=== PATIENT | female | born 1945 | race Caucasian/White ===

== ENCOUNTER 2016-11-21 13:41 | Outpatient (CLI) | payer MEDICARE, OTHER | END 2016-11-21 13:42 | disposition home or self-care (01) | DX: L40.0 Psoriasis vulgaris (principal); L21.8 Other seborrheic dermatitis; Z79.899 Other long term (current) drug therapy; L57.0 Actinic keratosis ==

== ENCOUNTER 2017-07-26 13:54 | Outpatient (CLI) | payer MEDICARE, OTHER ==
[~2017-07-26 13:54] MED LIST: IOPAMIDOL-300 100 ML VIAL ONE; IOPAMIDOL-300 50 ML VIAL ONE
[2017-07-26] MEDS ORDERED: IOPAMIDOL-300 100 ML VIAL IVP ONE (15:08)
[2017-07-26] MEDS ORDERED: IOPAMIDOL-300 50 ML VIAL PO ONE (15:08)
--- NOTE | 2017-07-26 18:56 | CT Report ---
CT ABDOMEN AND PELVIS WITH CONTRAST: 07/26/2017 CLINICAL INDICATION: Abdominal pain. Axial CT images of the abdomen and pelvis were obtained with 100 mL Isovue-300 intravenously as well as oral contrast. In accordance with CT protocol optimization, one or more of the following dose reduction techniques w ere utilized for this exam: automated exposure control, adjustment of mA and/or KV based on patient size, or use of iterative reconstructive technique. COMPARISON: 09/25/2011 Limited evaluation of the lung bases is unremarkable. ABDOMEN: The liver, spleen, pancreas, and adrenal glands are unremarkable. The kidneys demonstrate cortical cysts. No hydronephrosis or nephrolithiasis is seen. The patient is status post cholecyste ctomy. No bowel dilatation, free gas, or free fluid is present. No abdominal adenopathy is apprecia silvio. PELVIS: The appendix is seen in the right lower quadrant, and is normal in caliber. Extensive sigmo id diverticulosis is present, without CT evidence of diverticulitis. No pelvic adenopathy or free fl uid is present. Osseous structures demonstrate degenerative changes. IMPRESSION: DIVERTICULOSIS, WITHOUT CT EVIDENCE OF DIVERTICULITIS. POSTOPERATIVE CHANGES OF CHOLECY STECTOMY. JOB #: [id number] EXT JOB #:[id number]
== END 2017-07-26 13:55 | disposition home or self-care (01) ==
LOC: DI 13:54
PROVIDERS: ATTEND Family Medicine
DX: K57.30 Diverticulosis of large intestine without perforation or abscess without bleeding (principal); R10.9 Unspecified abdominal pain; Z90.49 Acquired absence of other specified parts of digestive tract
CPT/HCPCS: 74177; Q9967

== ENCOUNTER 2018-04-30 11:30 | Outpatient (CLI) | payer MEDICARE, OTHER ==
[2018-04-30 19:00] LABS: BASOPHILS # (AUTO) 0.1 10^3/uL (0.0-0.1); BASOPHILS % (AUTO) 0.8 %; EOSINOPHILS # (AUTO) 0.1 10^3/uL (0.0-0.7); EOSINOPHILS % (AUTO) 1.2 %; HGB - HEMOGLOBIN 13.6 g/dL (12.0-16.0); LYMPHOCYTES # (AUTO) 1.8 10^3/uL (1.5-3.5); LYMPHOCYTES % (AUTO) 20.8 %; MEAN CORPUSCULAR HEMOGLOBIN 32.6 pg (27.0-31.0); MEAN CORPUSCULAR HGB CONC 34.4 g/dL (32.0-36.0); MEAN PLATELET VOLUME 9.3 fL (7.9-10.8); MONOCYTES # (AUTO) 0.5 10^3/uL (0.0-1.0); MONOCYTES % (AUTO) 6.2 %; NEUTROPHILS # (AUTO) 6.1 10^3/uL (1.5-6.6); PLT - PLATELET COUNT 188 10^3/uL (130-450); RED BLOOD COUNT 4.16 10^6/uL (4.20-5.40); RED CELL DISTRIBUTION WIDTH 13.1 % (12.0-15.0); WHITE BLOOD COUNT 8.6 x10^3/uL (4.8-10.8)
[2018-04-30 19:07] LABS: CALCIUM 8.7 mg/dL (8.5-10.3); CREATININE 0.5 mg/dL (0.4-1.0)
== END 2018-04-30 11:31 | disposition home or self-care (01) ==
LOC: LAB.WCP 11:30
PROVIDERS: ATTEND Physician Assistant Medical
DX: L72.3 Sebaceous cyst (principal); D72.829 Elevated white blood cell count, unspecified
CPT/HCPCS: 36415; 80048; 85025; 85651

== ENCOUNTER 2018-08-07 15:09 | Outpatient (CLI) | payer MEDICARE, OTHER ==
--- NOTE | 2018-08-09 08:29 | Mammography Report ---
Reason: ANNUAL SCREENING Procedure Date: 08/07/2018 Accession Number: [id number] / [id number] Procedure: MARK - Screening Mammo w/Richard CPT Code: FULL RESULT: EXAM: Screening Mammo w/Richard DATE: 08/07/2018 3:32 PM CLINICAL HISTORY: 72-year-old female with personal history of breast biopsy on the right with benign results as well as family history of breast cancer in the mother at age 75 presents for screening. TECHNIQUE: Bilateral CC and MLO views were obtained. COMPARISON: 07/23/2017, 05/31/2016, 04/02/2015, 02/18/2014. FINDINGS: The breasts demonstrate scattered fibroglandular densities bilaterally. Typically benign vascular calcifications are noted bilaterally. A coarse typically benign calcifications noted in the right. No suspicious masses, clustered microcalcifications, or regions of architectural distortion are identified. IMPRESSION: Benign findings RECOMMENDATION: Routine annual screening unless otherwise clinically indicated. BIRADS CATEGORY 2: Benign findings STANDARD QUALIFYING STATEMENTS: 1. This examination was not reviewed with the aid of Computer-Aided Detection (CAD). 2. A negative or benign imaging report should not delay biopsy if clinically suspicious findings are present. Consider surgical consultation if warranted. More than 5% of cancers are not identified by imaging. 3. Dense breasts may obscure an underlying neoplasm. 4. This examination was reviewed with the aid of 3D breast imaging (tomosynthesis).
== END 2018-08-07 15:10 | disposition home or self-care (01) ==
LOC: DI 15:09
DX: Z12.31 Encounter for screening mammogram for malignant neoplasm of breast (principal); Z80.3 Family history of malignant neoplasm of breast
CPT/HCPCS: 77063; 77067

== ENCOUNTER 2019-01-30 22:13 | Outpatient (CLI) | payer MEDICARE, OTHER ==
--- NOTE | 2019-01-30 23:45 | Ultrasound Report ---
Reason: THIGH PAIN,LEFT, HX OF DVT Procedure Date: 01/30/2019 Accession Number: [id number] / [id number] Procedure: US - Duplex Ext Veins Left CPT Code: FULL RESULT: EXAM: LEFT LOWER EXTREMITY VENOUS ULTRASOUND EXAM DATE: 01/30/2019 11:00 PM. CLINICAL HISTORY: Left thigh pain. History of DVT. COMPARISON: None. TECHNIQUE: Real-time sonographic vascular imaging was performed by the applications trainer through the lower extremity utilizing both color-flow and Doppler spectral analysis. Multiple malt liquors sales representative static images were saved for review. FINDINGS: Common Femoral Vein (CFV): Normal. CFV-GSV Junction: Normal. Profunda Femoral Vein (PFV): Normal. Femoral Vein (FV) Prox: Normal. Femoral Vein (FV) Mid: Normal. Femoral Vein (FV) Dist: Normal. Popliteal Vein: Normal. Posterior Tibial Veins: Normal. Peroneal Veins: Normal. Contralateral Right CFV: Normal. Other: None. IMPRESSION: No evidence for deep venous thrombosis. RADIA
== END 2019-01-30 22:14 | disposition home or self-care (01) ==
LOC: DI 22:13
PROVIDERS: ATTEND Family Medicine
DX: M79.652 Pain in left thigh (principal); Z86.718 Personal history of other venous thrombosis and embolism

== ENCOUNTER 2019-08-27 16:07 | Outpatient (CLI) | payer MEDICARE, OTHER ==
--- NOTE | 2019-08-28 08:08 | DEXA Report ---
Reason: BONE DISORDER Procedure Date: 08/27/2019 Accession Number: [id number] / [id number] Procedure: DEX - Dexa Spine and/or Hip CPT Code: Final Report FULL RESULT: EXAM: Dexa Spine and/or Hip DATE: 08/27/2019 4:34 PM CLINICAL HISTORY: BONE DISORDER TECHNIQUE: Dual energy x-ray absorptiometry (DXA) was performed on a [employer] System. Regions measured are the AP Spine, femoral neck, and if needed forearm. COMPARISON: 07/23/2017. In accordance with the International Society for Clinical Densitometry (ISCD) guidelines, data from previous exams may be reanalyzed using current recommendations and techniques. This is done to allow a more accurate basis for comparison with the current study. FINDINGS: The data for the lumbar spine is as follows: BMD (g/cm/cm) T-SCORE Z-SCORE REGION L1 1.475 2.9 4.3 L2 1.676 4.0 5.4 L3 1.725 4.4 5.8 L4 1.759 4.7 6.1 TOTAL 1.671 4.1 5.5 NOTE: All evaluable vertebrae are used for classification The data for the hip is as follows: BMD (g/cm/cm) T-SCORE Z-SCORE REGION Neck 0.767 -2.0 -0.3 TOTAL 0.818 -1.5 -0.1 NOTE: The femoral neck or total proximal femur, whichever is lowest, is used for classification. DXA RESULTS SUMMARY: Spine SCAN DATE AGE BMD CHANGE VS CHANGE VS PREVIOUS PREVIOUS % 08/27/2019 [age] 1.671 0.067* 4.2* 07/23/2017 [age] 1.604 * Denotes significant change at the 95% confidence level. Denotes dissimilar scan types or analysis methods. DXA RESULTS SUMMARY: Hip SCAN DATE AGE BMD CHANGE VS CHANGE VS PREVIOUS PREVIOUS % 08[age]27/2019 71.8 0.818 -0.047* -5.4* 07/23/2017 69.7 0.865 * Denotes significant change at the 95% confidence level. Denotes dissimilar scan types or analysis methods. IMPRESSION: THE WHO CLASSIFICATION BASED ON THE INTERNATIONAL REFERENCE STANDARD IS OSTEOPENIA. THE FRACTURE RISK IS INCREASED. Interval decrease in bone stock is statistically significant. RECOMMENDATION: Patients with diagnosis of osteoporosis or osteopenia should have regular bone mineral density assessment. For those eligible for Medicare, routine testing is allowed once every 2 years. Testing frequency can be increased for patients who have rapidly progressing disease or for those who are receiving medical therapy to restore bone mass. COMMENT: World Health Organization (WHO) definitions for osteoporosis and osteopenia: NORMAL BMD: T-score at -1.0 or higher, fracture risk is low OSTEOPENIA BMD: T-score between -1.0 and -2.5, fracture risk is increased. OSTEOPOROSIS BMD: T-score at -2.5 or lower, fracture risk is high. National Osteoporosis Foundation recommends: 1. Obtain adequate dietary calcium (at least 1200 mg per day) and vitamin D (400-800 international units per day). 2. Participate, as appropriate, in regular weightbearing and muscle-strengthening exercise. 3. Avoid tobacco use and reduce alcohol and caffeine intake. 4. For more detailed information see the website at www.NOF.org.
== END 2019-08-27 16:08 | disposition home or self-care (01) ==
LOC: DI 16:07
PROVIDERS: ATTEND Family Medicine
DX: M85.88 Other specified disorders of bone density and structure, other site (principal)
CPT/HCPCS: 77080

== ENCOUNTER 2019-08-27 16:08 | Outpatient (CLI) | payer MEDICARE, OTHER ==
--- NOTE | 2019-08-28 08:06 | Mammography Report ---
Reason: ROUTINE MAMMO Procedure Date: 08/27/2019 Accession Number: [id number] / [id number] Procedure: MARK - Screening Mammo w/Richard CPT Code: Final Report FULL RESULT: EXAM: Screening Mammo w/Richard DATE: 08/27/2019 4:47 PM CLINICAL HISTORY: Screening encounter. History of benign right breast biopsy, excisional type. History of early menses. Family history of breast cancer in the mother at the age of 75. TECHNIQUE: (B) - Bilateral CC and MLO views were obtained. COMPARISON: 08/07/2018 through 12/16/2009. PARENCHYMAL PATTERN: (A) - The breast(s) demonstrate(s) scattered fibroglandular densities. FINDINGS: There are typically benign vascular calcifications as well as typically benign coarse calcifications. There are no suspicious masses, calcifications, or areas of distortion. IMPRESSION: Benign findings. BI-RADS category 2. RECOMMENDATION: (ANNUAL) - Recommend routine annual screening mammography. BI-RADS CATEGORY: (2) - Benign Findings. STANDARD QUALIFYING STATEMENTS: 1. This examination was not reviewed with the aid of Computer-Aided Detection (CAD). 2. A negative or benign imaging report should not preclude biopsy if clinically suspicious findings are present. 3. Dense breasts may obscure an underlying neoplasm. 4. This examination was reviewed with the aid of 3D breast imaging (tomosynthesis).
== END 2019-08-27 16:09 | disposition home or self-care (01) ==
LOC: DI 16:08
DX: Z12.31 Encounter for screening mammogram for malignant neoplasm of breast (principal); Z80.3 Family history of malignant neoplasm of breast
CPT/HCPCS: 77063; 77067

== ENCOUNTER 2019-09-25 08:00 | Outpatient (CLI) | payer MEDICARE, OTHER ==
[2019-09-25 18:37] LABS: BASOPHILS % (AUTO) 0.4 %; EOSINOPHILS # (AUTO) 0.1 10^3/uL (0.0-0.7); EOSINOPHILS % (AUTO) 0.8 %; HGB - HEMOGLOBIN 13.7 g/dL (12.0-16.0); LYMPHOCYTES # (AUTO) 3.5 10^3/uL (1.5-3.5); LYMPHOCYTES % (AUTO) 33.8 %; MEAN CORPUSCULAR HEMOGLOBIN 31.9 pg (27.0-31.0); MEAN CORPUSCULAR HGB CONC 32.9 g/dL (32.0-36.0); MEAN CORPUSCULAR VOLUME 96.7 fL (81.0-99.0); MEAN PLATELET VOLUME 10.5 fL (7.9-10.8); MONOCYTES # (AUTO) 0.6 10^3/uL (0.0-1.0); MONOCYTES % (AUTO) 5.7 %; NEUTROPHILS # (AUTO) 6.2 10^3/uL (1.5-6.6); NEUTROPHILS % (AUTO) 58.8 %; PLT - PLATELET COUNT 266 10^3/uL (130-450); RED CELL DISTRIBUTION WIDTH 12.7 % (12.0-15.0); WHITE BLOOD COUNT 10.5 x10^3/uL (4.8-10.8)
[2019-09-25 18:51] LABS: ALBUMIN 3.8 g/dL (3.2-5.5); ALBUMIN/GLOBULIN RATIO 1.3 (1.0-2.2); BILIRUBIN,TOTAL 0.5 mg/dL (0.2-1.0); CALCIUM 8.8 mg/dL (8.5-10.3); CREATININE 0.7 mg/dL (0.4-1.0); TOTAL PROTEIN 6.7 g/dL (6.7-8.2)
== END 2019-09-25 23:59 | disposition home or self-care (01) ==
LOC: LAB.WCP 08:00
PROVIDERS: ATTEND Physician Assistant
DX: L40.0 Psoriasis vulgaris (principal); R20.8 Other disturbances of skin sensation; L53.8 Other specified erythematous conditions; L29.8 Other pruritus; Z79.899 Other long term (current) drug therapy
CPT/HCPCS: 36415; 80053; 85025

== ENCOUNTER 2019-09-25 14:52 | Outpatient (CLI) | payer MEDICARE, OTHER ==
--- NOTE | 2019-09-26 06:15 | XRAY Report ---
Reason: COPD ACUTE EXACERBATION Procedure Date: 09/25/2019 Accession Number: [id number] / [id number] Procedure: WCP - Chest 2 View X-Ray CPT Code: 98932 Final Report FULL RESULT: EXAM: CHEST RADIOGRAPHY EXAM DATE: 09/25/2019 02:52 PM. CLINICAL HISTORY: COPD ACUTE EXACERBATION. Shortness of breath. COMPARISON: CHEST ANGIO 08/06/2013 9:01 AM. TECHNIQUE: 2 views. FINDINGS: Lungs/Pleura: Large volumes. No focal pneumonia or overt edema. No pneumothorax or effusion. Mediastinum: Within exam limitations, cardiomediastinal contour is normal. Other: None. IMPRESSION: COPD without acute process seen in the chest. RADIA
== END 2019-09-25 23:59 | disposition home or self-care (01) ==
LOC: DI.WCP 14:52
PROVIDERS: ATTEND Family Medicine
DX: J44.1 Chronic obstructive pulmonary disease with (acute) exacerbation (principal); L40.0 Psoriasis vulgaris; R20.8 Other disturbances of skin sensation; L53.8 Other specified erythematous conditions; L29.8 Other pruritus; Z79.899 Other long term (current) drug therapy
CPT/HCPCS: 36415; 71046; 80053; 85025

== ENCOUNTER 2019-10-09 13:13 | Outpatient (CLI) | payer MEDICARE, OTHER ==
[~2019-10-09 13:13] MED LIST changes: +ALBUTEROL NEB 2.5 MG/3 ML INH SCH; -IOPAMIDOL-300 100 ML VIAL ONE; -IOPAMIDOL-300 50 ML VIAL ONE
== END 2019-10-09 13:14 | disposition home or self-care (01) ==
LOC: RT 13:13
PROVIDERS: ATTEND Family Medicine
DX: J44.1 Chronic obstructive pulmonary disease with (acute) exacerbation (principal)
CPT/HCPCS: 94060

== ENCOUNTER 2021-02-16 13:16 | Outpatient (CLI) | payer MEDICARE, OTHER ==
--- NOTE | 2021-02-16 15:25 | CT Report ---
PROCEDURE: CHEST WO INDICATIONS: Cough,Chronic TECHNIQUE: Noncontrast 5 mm thick sections acquired from the pulmonary apices to the posterior costophrenic angl es. 7 mm thick coronal and sagittal MIP reformats were then acquired. For radiation dose reduction, the following was used: automated exposure control, adjustment of mA and/or kV according to patient size. COMPARISON: Chest CT from 08/06/2013. FINDINGS: Image quality: Excellent. Lungs and pleura: No acute air space opacities. No pleural effusions or pneumothorax. Central and peripheral airways are patent and normal in caliber. What appears to be centrilobular emphysema is p resent over the upper lungs. The lung volumes are relatively large. COPD is suspected. Mediastinum: Heart size is normal. No pericardial effusion. No mediastinal adenopathy by size crit eria. Thoracic aorta and central pulmonary arteries are normal in size. Esophagus is normal in yodit vinicio. No hiatal hernia. Bones and chest wall: No suspicious bony lesions. No vertebral body compression fractures. No axil loki or supraclavicular adenopathy by size criteria. The thyroid is normal in size and there are no incidental findings. Note is made of a rounded 2.2 cm diameter nodule in the subcutaneous fatty soft tissues immediately deep to the skin surface, at the back midline seen centered on series 3 image 1. No additional cutaneous lesion is seen elsewhere. The comparison CT from 08/06/2013 may have initiate d its imaging just below this axial level. Abdomen: Visualized upper abdominal solid organs and bowel loops appear normal in the absence of con trast. Prior cholecystectomy. IMPRESSION: 1. No pneumonia or endobronchial mass found. 2. Relatively large lung volumes and what appears on CT scanning to be relatively mild centrilobular emphysema is seen at the upper lungs. Please correlate for COPD. 3. There is a midline upper back/lower neck subcutaneous 2.2 cm soft tissue mass. This is sharply dem arcated and may represent a sebaceous cyst. Please correlate clinically. If this structure has not be en previously evaluated organs: To be chronically present by the patient follow-up dermatology or albert gical consultation likely is warranted. Reviewed by: Byron Franz MD on 02/16/2021 2:23 PM AKDT Approved by: Byron Franz MD on 02/16/2021 2:23 PM AKDT Station ID: [id number]
--- NOTE | 2021-02-17 13:30 | Mammography Report ---
BILATERAL DIGITAL SCREENING MAMMOGRAM 3D/2D: 02/16/2021 CLINICAL: Family history of breast cancer. Routine screening. Comparison is made to exams dated: 09/04/2019 mammogram, 08/07/2018 mammogram, 07/23/2017 mammogram, 05/31/2016 mammogram, 04/02/2015 mammogram, and 02/18/2014 mammogram - [facility]. The re are scattered fibroglandular elements in both breasts. There are benign calcifications in both breasts. There also are benign vascular calcifications in lela th breasts. No significant masses, calcifications, or other findings are seen in either breast. There has been no significant interval change. IMPRESSION: BENIGN There is no mammographic evidence of malignancy. A 1 year screening mammogram is recommended. This exam was interpreted at Station ID: [id number]. NOTE: For mammograms, a report in lay terms will be sent to the patient. Approximately 15% of breast malignancies will not be visualized mammographically. In the management of a palpable breast mass, a negative mammogram must not discourage biopsy of a clinically suspicious lesion. Electronically Signed By: Fabian Lutz M.D. ddp/penrad:02/16/2021 14:42:39 ACR BI-RADS Category 2: Benign Finding(s) 3342F PARENCHYMAL PATTERN: (A) - The breast(s) demonstrate(s) scattered fibroglandular densities. BI-RADS CATEGORY: (2) - 2 RECOMMENDATION: (ANNUAL) - Recommend routine annual screening mammography. [id number] 1 year screening LATERALITY: (B)
== END 2021-02-16 13:17 | disposition home or self-care (01) ==
LOC: DI 13:16
DX: Z12.31 Encounter for screening mammogram for malignant neoplasm of breast (principal); Z80.3 Family history of malignant neoplasm of breast; R91.8 Other nonspecific abnormal finding of lung field; R93.89 Abnormal findings on diagnostic imaging of other specified body structures

== ENCOUNTER 2021-02-16 13:30 | Outpatient (CLI) | payer MEDICARE, OTHER | END 2021-02-16 13:31 | disposition home or self-care (01) | LOC: DI 13:30 | PROVIDERS: ATTEND Family Medicine | DX: R05 Cough (principal) ==

== ENCOUNTER → 2021-12-28 | Outpatient (CLI) | payer MEDICARE, OTHER ==
[2021-12-28 18:28] LABS: BASOPHILS # (AUTO) 0.1 10^3/uL (0.0-0.1); BASOPHILS % (AUTO) 0.6 %; EOSINOPHILS # (AUTO) 0.1 10^3/uL (0.0-0.7); EOSINOPHILS % (AUTO) 0.8 %; HCT - HEMATOCRIT 38.4 % (37.0-47.0); HGB - HEMOGLOBIN 12.7 g/dL (12.0-16.0); LYMPHOCYTES # (AUTO) 1.8 10^3/uL (1.5-3.5); LYMPHOCYTES % (AUTO) 23.5 %; MEAN CORPUSCULAR HGB CONC 33.1 g/dL (32.0-36.0); MEAN CORPUSCULAR VOLUME 96.7 fL (81.0-99.0); MEAN PLATELET VOLUME 11.6 fL (7.9-10.8); MONOCYTES # (AUTO) 0.4 10^3/uL (0.0-1.0); MONOCYTES % (AUTO) 5.1 %; NEUTROPHILS # (AUTO) 5.5 10^3/uL (1.5-6.6); NEUTROPHILS % (AUTO) 69.7 %; PLT - PLATELET COUNT 184 10^3/uL (130-450); RED BLOOD COUNT 3.97 10^6/uL (4.20-5.40); RED CELL DISTRIBUTION WIDTH 12.5 % (12.0-15.0); WHITE BLOOD COUNT 7.8 x10^3/uL (4.8-10.8)
[2021-12-28 19:25] LABS: ALBUMIN 3.7 g/dL (3.2-5.5); ALBUMIN/GLOBULIN RATIO 1.3 (1.0-2.2); ALKALINE PHOSPHATASE 51 IU/L (42-121); ALT ALANINE AMINOTRANSFERASE 15 IU/L (10-60); AST ASPARTATE AMINOTRANSFERASE 23 IU/L (10-42); BILIRUBIN,TOTAL 0.4 mg/dL (0.2-1.0); BUN - BLOOD UREA NITROGEN 11 mg/dL (6-20); CALCIUM 8.9 mg/dL (8.5-10.3); CARBON DIOXIDE - CO2 27 mmol/L (21-32); CHLORIDE 103 mmol/L (101-111); CHOLESTEROL 123 mg/dL; CREATININE 0.7 mg/dL (0.4-1.0); GFR - MDRD 82 (>89); GLUCOSE 87 mg/dL (70-100); HDL CHOLESTEROL 41 mg/dL; LDL CHOLESTEROL,CALCULATED 64 mg/dL; LDL/HDL RATIO 1.6 (<4.4); SODIUM 138 mmol/L (135-145); TOTAL PROTEIN 6.6 g/dL (6.7-8.2); TRIGLYCERIDES 88 mg/dL; VLDL CHOLESTEROL 18 mg/dL
== END ==
LOC: LAB.N 08:00
PROVIDERS: ATTEND Family Medicine
DX: R19.7 Diarrhea, unspecified (principal); K62.5 Hemorrhage of anus and rectum; I10 Essential (primary) hypertension
CPT/HCPCS: 36415; 80053; 80061; 81599; 83721; 85025; 87045; 87046; 87329; 87427; 87449; 87493

== ENCOUNTER 2022-01-23 07:24 | Day surgery (SDC) | payer MEDICARE, OTHER ==
[2022-01-23] MEDS ORDERED: LACTATED RINGERS 1,000 ML IV ONE (07:54)
--- NOTE | 2022-01-23 08:20 | ANESTHESIA ---
Pre-Anesthesia VS, & Labs - Diagnosis rectal bleeding - Procedure colonoscopy Vital Signs: Temp Pulse Resp BP Pulse Ox 37.4 C 98 16 152/57 H 99 01/23/22 07:43 01/23/22 07:43 01/23/22 07:43 01/23/22 07:43 01/23/22 07:43 Height: 5 ft 3 in Weight (kg): 71.4 kg Body Mass Index: 27.8 BMI Classification: Overweight - NPO >8 hours - Is Patient ?: No Home Medications and Allergies Home Medications: Ambulatory Orders Benzonatate [Tessalon] 100 mg PO TID PRN 01/17/22 Folic Acid 1 mg PO DAILY 01/17/22 Tiotropium Hudson [Spiriva Respimat] 1 inh IH DAILY 01/17/22 Aspirin Chewable [[place] Aspirin] 81 mg PO DAILY 08/04/13 Hydrochlorothiazide 25 mg PO DAILY 08/04/13 Omeprazole [PriLOSEC] 20 mg PO DAILY 08/04/13 Potassium Chloride [Micro-K] 10 meq PO BIDWM 08/04/13 Simvastatin [Zocor] 40 mg PO HS 08/04/13 Methotrexate [Methotrexate Sodium] 3 tab PO ONCE 09/08/16 Benzonatate [Tessalon] 100 mg PO TID PRN 01/17/22 Folic Acid 1 mg PO DAILY 01/17/22 Tiotropium Hudson [Spiriva Respimat] 1 inh IH DAILY 01/17/22 Allergies/Adverse Reactions: Allergies Allergy/AdvReac Type Severity Reaction Status Date / Time minocycline Allergy swelling Verified 01/17/22 15:26 Anes History & Medical History - Anesthetic History Anesthesia Complications: reports: No previous complications - Medical History Cardiovascular: reports: Hypertension, High cholesterol, Deep vein thrombosis, Pulmonary embolism (2013) Pulmonary: reports: COPD Gastrointestinal: reports: GERD, Ulcers, Colon polyps, Other Urinary: reports: Nocturia Neuro: reports: None Musculoskeletal: reports: Osteoarthritis Endocrine/Autoimmune: reports: None Blood Disorders: reports: None Skin: reports: Psoriasis (plaque psoriasis) Smoking Status: Current every day smoker (1 pack per day for 50 years) Psychosocial: reports: No issues indicated History of Cancer?: No - Surgical History General: reports: Cholecystectomy, Colonoscopy, EGD Eyes Ears Nose Throat (EENT): reports: Cataracts Gynecologic: reports: Tubal ligation Orthopedic: reports: Knee replacement Exam General: Alert, Oriented x3, Cooperative, No acute distress Dental: Dentures full Upper Mouth Openin Fingerbreadth Neck Mobility: Normal Mallampati classification: I Thyromental Distance: 4-6 cm Mental/Cognitive Status: Alert/Oriented X3, Normal for patient Plan Anesthesia Type: General, Total IV Consent for Procedure(s) Verified and Reviewed: Yes Code Status: Attempt Resuscitation ASA classification: 2-Mild systemic disease Is this case an emergency?: No
[2022-01-23] MEDS ORDERED: PROPOFOL 200 MG/20 ML VIAL IVP ONE (09:16)
[2022-01-23] MEDS ORDERED: LACTATED RINGERS 600 ML IV ONE (09:33)
[2022-01-23 09:54] VITALS: BP 123/47
--- NOTE | 2022-01-23 11:53 | ANESTHESIA POST OP EVALUATION ---
Anesthesia Post Eval - Post Anesthesia Eval Vitals: Last Vital Signs Temp 36.3 C L 01/23/22 09:53 Pulse 69 01/23/22 09:53 Resp 20 01/23/22 09:53 BP 123/47 L 01/23/22 09:53 Pulse Ox 100 01/23/22 09:53 CV Function Including HR & BP: Stable Pain Control: Satisfactory Nausea & Vomiting: Negative Mental Status: Baseline Respiratory Status: Airway Patent Hydration Status: Satisfactory Anesthesia Complications: None
== END 2022-01-23 07:25 | disposition home or self-care (01) ==
LOC: SDS 07:24
PROVIDERS: ATTEND Surgery
PROC: 0DBM8ZZ Excision of Descending Colon, Via Natural or Artificial Opening Endoscopic (ICD-10-PCS; principal; 2022-01-23 08:30)
DX: K57.31 Diverticulosis of large intestine without perforation or abscess with bleeding (principal); K64.8 Other hemorrhoids; D12.4 Benign neoplasm of descending colon; J44.9 Chronic obstructive pulmonary disease, unspecified; F17.210 Nicotine dependence, cigarettes, uncomplicated
CPT/HCPCS: 45380; J7120

== ENCOUNTER 2022-06-02 13:29 | Outpatient (CLI) | payer MEDICARE, OTHER ==
--- NOTE | 2022-06-02 16:55 | DEXA Report ---
PROCEDURE: Dexa Spine and/or Hip INDICATIONS: POST MENOPAUSAL TECHNIQUE: Dual energy x-ray absorptiometry (DXA) was performed on a [employer] System. Regions measur ed are the AP Spine, femoral neck, and if needed forearm. COMPARISON: 08/27/2019. FINDINGS: Lumbar Spine: Bone Mineral Density 1.655 g/cm/cm,T score 4.0. There is interval 1% decrease in total lumbar spin e bone mineral density. Left Hip: Bone Mineral Density 0.817 g/cm/cm,T score -1.5. There is interval 0.1% decrease in total left hip b one mineral density. Left Femoral Neck: Bone Mineral Density 0.744 g/cm/cm, T score -2.1. (T score greater or equal to -1.0: NORMAL) (T score from -1.1 to -2.4: OSTEOPENIA) (T score less than or equal to -2.5 to: OSTEOPOROSIS) Impression: Osteopenia. Patients with diagnosis of osteoporosis or osteopenia should have regular bone mineral density assess ment. For those eligible for Medicare, routine testing is allowed once every 2 years. Testing frequ ency can be increased for patients who have rapidly progressing disease or for those who are receivin g medical therapy to restore bone mass. Reviewed by: Dejan Woods MD on 06/02/2022 4:54 PM PDT Approved by: Dejan Woods MD on 06/02/2022 4:54 PM PDT Station ID: [id number]
== END 2022-06-02 13:30 | disposition home or self-care (01) ==
LOC: DI 13:29
PROVIDERS: ATTEND Physician Assistant
DX: Z78.0 Asymptomatic menopausal state (principal); M85.88 Other specified disorders of bone density and structure, other site

== ENCOUNTER 2023-07-02 14:31 | Outpatient (CLI) | payer MEDICARE, OTHER ==
--- NOTE | 2023-07-02 16:46 | Ultrasound Report ---
PROCEDURE: Ankle Brachial Index INDICATIONS: COLD FEET TECHNIQUE: Ankle-brachial indices were obtained bilaterally and recorded. COMPARISONS: None. FINDINGS: Right ankle brachial index (CLAYTON): 1.1 Left ankle brachial index (CLAYTON): 1.2 IMPRESSION: Normal ankle-brachial indices bilaterally. Reviewed by: Claudio eVe MD on 07/02/2023 4:44 PM PDT Approved by: Claudio Vee MD on 07/02/2023 4:44 PM PDT Station ID: [id number]
== END 2023-07-02 14:32 | disposition home or self-care (01) ==
LOC: DI 14:31
PROVIDERS: ATTEND Physician Assistant
DX: M79.673 Pain in unspecified foot (principal); R68.89 Other general symptoms and signs
CPT/HCPCS: 93922

== ENCOUNTER 2024-05-08 14:58 | Outpatient (CLI) | payer MEDICARE, OTHER ==
--- NOTE | 2024-05-09 15:35 | Mammography Report ---
BILATERAL DIGITAL SCREENING MAMMOGRAM 3D/2D: 05/08/2024 CLINICAL: Routine screening. Comparison is made to exams dated: 06/02/2022 mammogram, 02/16/2021 mammogram, 09/04/2019 mammogram, mammogram, 07/23/2017 mammogram, and 05/31/2016 mammogram - [facility]. There are scattered areas of fibroglandular density in both breasts (category b / 25%-50% glandular t issue). There are benign calcifications in both breasts. There also are benign vascular calcifications in lela th breasts. No significant masses, calcifications, or other findings are seen in either breast. There has been no significant interval change. IMPRESSION: BENIGN There is no mammographic evidence of malignancy. A 1 year screening mammogram is recommended. Based on the Tyrer Cuzick model (a risk assessment model) the patient's lifetime risk is 4.4% and her 10 year risk is 0.0%. According to the ACR, ACS, and NCCN guidelines, an annual breast MRI exam syeda g with mammogram is recommended if the patient's lifetime risk is 20% or greater. This exam was interpreted at Station ID: [id number]. NOTE: For mammograms, a report in lay terms will be sent to the patient. Approximately 15% of breast malignancies will not be visualized mammographically. In the management of a palpable breast mass, a negative mammogram must not discourage biopsy of a clinically suspicious lesion. Electronically Signed By: Jarrod colorado/saud:05/09/2024 07:19:02 letter sent: No_Letter ACR BI-RADS Category 2: Benign Finding(s) 3342F PARENCHYMAL PATTERN: (A) - The breast(s) demonstrate(s) scattered fibroglandular densities. BI-RADS CATEGORY: (2) - 2 RECOMMENDATION: (ANNUAL) - Recommend routine annual screening mammography. [id number] 1 year screening LATERALITY: (B)
== END 2024-05-08 14:59 | disposition home or self-care (01) ==
LOC: DI 14:58
DX: Z12.31 Encounter for screening mammogram for malignant neoplasm of breast (principal); R92.323 Mammographic fibroglandular density, bilateral breasts